=== PATIENT | female | born 1985 | race Caucasian/White ===

== ENCOUNTER 2023-02-18 14:24 | Emergency (ER) | payer OTHER, SELFPAY ==
--- NOTE | ~2023-02-18 | XR_ITS ---
EXAMINATION: XR barium swallow DATE: 02/18/2023 18:21 INDICATION: Dysphagia. TECHNIQUE: The patient drank thick barium, gas-producing crystals, and thin barium. Fluoroscopy of th e hypopharynx and esophagus was performed. Fluoroscopy exposure time was 0.8 minutes. The total numbe r of images was 498. The dose-area product was 3.570 Gy-cm^2. COMPARISON: None. FINDINGS: There is no mass or stricture of the esophagus. No diverticulum. Esophageal motility is nor mal. There is no hiatal hernia. IMPRESSION: 1. Normal esophagram. Reviewed, dictated and finalized at location A. IMPRESSION: 1. Normal esophagram.
--- NOTE | ~2023-02-18 | US_ITS ---
EXAMINATION: US right upper quadrant DATE: 02/18/2023 15:58 INDICATION: Epigastric abdominal pain. TECHNIQUE: Multiple grayscale and Doppler ultrasound images of the abdomen were obtained. COMPARISON: None FINDINGS: The visualized portions of the head and body of the pancreas are normal. The liver is julius l without focal lesion. No liver surface nodularity. There is normal flow in main portal vein. The ga llbladder is normal in size. No gallstones or gallbladder wall thickening. There is no sonographic Mu rphy sign. The common duct is normal and measures 3 mm. IMPRESSION: 1. Normal right upper quadrant ultrasound. Reviewed, dictated and finalized at location A.
[2023-02-18 14:26] VITALS: BP 147/102; PULSE 95; RESP 16; TEMP 36.6; O2SAT 99
[2023-02-18] MEDS: MORPHINE SULFATE (*CRX) 4 MG/ML INJ IV PUSH (15:06)
[2023-02-18] MEDS: ONDANSETRON INJ 4 MG/2 ML VIAL IV PUSH (15:06)
[2023-02-18 15:15] VITALS: BP 131/73; PULSE 78; RESP 16; O2SAT 98
[2023-02-18 15:17] LABS: Basophils Absolute Auto 0.1 K/mm3 (0.0-0.1); Basophils Percent Auto 0.5 % (0.2-1.2); Eosinophils Absolute Auto 0.4 K/mm3 (0-0.3); Eosinophils Percent Auto 3.3 % (0-4.4); Hematocrit 33.9 % (37.0-47.0); Hemoglobin 12.4 g/dL (12.0-15.0); Immature Granulocyte Absolute 0.02 K/mm3 (0.00-0.031); Immature Granulocyte Percent A 0.2 % (0-0.5); Lymphocytes Absolute Auto 3.02 K/mm3 (0.9-3.2); Lymphocytes Percent Auto 28.5 % (18.3-44.2); Mean Corpuscular HGB Conc 36.6 g/dl (32-36); Mean Corpuscular Hemoglobin 31.2 pg (26-34); Mean Corpuscular Volume 85.4 fl (80-100); Mean Platelet Volume 10.3 fl (7.4-10.4); Monocytes Absolute Auto 0.9 K/mm3 (0.1-0.6); Monocytes Percent Auto 8.9 % (2.6-8.5); Neutrophils Absolute Auto 6.2 K/mm3 (1.3-6.7); Neutrophils Percent Auto 58.6 % (45.5-73.1); Platelet Count Result 350 k/mm3 (150-375); Red Blood Count 3.97 M/mm3 (4.2-5.4); Red Cell Distribution Width 13.3 % (11.5-14.5); White Blood Count 10.6 K/mm3 (4.5-10.0)
[2023-02-18 15:33] LABS: Alanine Aminotransferase 18 U/L (6-35); Albumin Level 4.4 g/dL (3.5-5.1); Alkaline Phosphatase 66 U/L (38-126); Anion Gap 8 mmol/L (8-16); Aspartate Amino Transferase 18 U/L (14-36); Bilirubin,Total 0.6 mg/dL (0.2-1.3); Blood Urea Nitrogen 10 mg/dL (7-17); Calcium 9.1 mg/dL (8.4-10.2); Carbon Dioxide 27 mmol/L (22-30); Chloride 103 mmol/L (98-107); Estimated CRCL calculation 97 ml/min; Estimated Glomerular Filt Rate > 60; Glucose 94 mg/dL (65-110); Lipase 74 U/L (23-300); Potassium 2.7 mmol/L (3.4-5.0); Sodium 138 mmol/L (137-145)
[2023-02-18 16:54] VITALS: BP 131/73; PULSE 80; RESP 18; O2SAT 98
[2023-02-18 18:00] VITALS: BP 137/87; PULSE 77; RESP 16; O2SAT 97
--- NOTE | 2023-02-18 18:01 | ED.GENADULT ---
HPI - General Adult General Chief complaint: Unspecified Stated complaint: gastric reflux Time Seen by Provider: 02/18/23 14:36 History of Present Illness HPI narrative: Patient is a 37-year-old female who presents ER with nausea and vomiting. Ongoing over the last week for worsening over the last few days. Reports she has had vomit that is containing food from 2 to 3 days prior. She reports her belches smelled like sewage. She has had no diarrhea. No blood in her stool or emesis. She has been taking Protonix in the morning and famotidine in the evening. She reports she gets a fullness up into the center of her chest and moving into her back. No history of pancreatitis. She does take Ozempic and reports she usually gets 1 day of nausea and does not associate that with this. No alleviating factors. Related Data Allergies Allergy/AdvReac Type Severity Reaction Status Date / Time sumatriptan [From Imitrex] Allergy Palpitation Verified 02/18/23 15:07 s Review of Systems Review of Systems: All systems reviewed & are unremarkable except as noted in HPI and below Constitutional: Constitutional: Denies chills and Denies fever(s) ENT: Denies halitosis, Reports dysphagia and Denies nasal congestion Gastrointestinal: Gastrointestinal: Reports abdominal pain, Reports bloating, Reports early satiety, Reports nausea and Reports vomiting Musculoskeletal: Musculoskeletal: Denies back pain, Denies muscle cramps and Denies muscle weakness PMFSH Past Medical History Medical History (Updated 02/18/23 @ 18:49 by Gurjit Ruffin MD) GERD (gastroesophageal reflux disease) Hypertension Metabolic syndrome Social History Social History (Updated 02/18/23 @ 18:49 by Gurjit Ruffin MD) Smoking status: Never smoker Exam Narrative: GENERAL: Well-appearing, well-nourished, and in no acute distress. HEAD: Normocephalic, atraumatic. ENT: Mucous membranes moist. NECK: Supple. CHEST: Clear to auscultation. No respiratory distress. HEART: Regular rate and rhythm. Normal peripheral pulses. ABDOMEN: Soft, mild epigastric discomfort, nondistended, normal active bowel sounds. EXTREMITIES: Normal range of motion. No edema. SKIN: Warm, dry, no rash. NEURO: Alert and oriented x3. PSYCH: Normal mood and affect. Course Course Emergency Course: Patient resting comfortably. Informed of imaging and lab results. Suspect patient is having reflux esophagitis given her symptoms. No Zenker's diverticulum or pancreatitis. Patient has received oral potassium supplementation here. She reports she has potassium supplementation at home as well as extra Protonix. We discussed modifying her home medication regimen and she is verbalized understanding. Vital Signs Vital signs: Vital Signs Temperature 97.8 F 02/18/23 14:26 Pulse Rate 95 02/18/23 14:26 Respiratory Rate 16 02/18/23 14:26 Blood Pressure 147/102 H 02/18/23 14:26 Pulse Oximetry 99 02/18/23 14:26 Oxygen Delivery Room Air 02/18/23 14:26 Temperature 97.8 F 02/18/23 14:26 Pulse Rate 95 02/18/23 14:26 Respiratory Rate 16 02/18/23 14:26 Blood Pressure 147/102 H 02/18/23 14:26 Pulse Oximetry 99 02/18/23 14:26 Oxygen Delivery Room Air 02/18/23 14:26 Medical Decision Making Vital Signs Vital Signs: Vital Signs Temperature 97.8 F 02/18/23 14:26 Pulse Rate 95 02/18/23 14:26 Respiratory Rate 16 02/18/23 14:26 Blood Pressure 147/102 H 02/18/23 14:26 Pulse Oximetry 99 02/18/23 14:26 Oxygen Delivery Room Air 02/18/23 14:26 Temperature 97.8 F 02/18/23 14:26 Pulse Rate 95 02/18/23 14:26 Respiratory Rate 16 02/18/23 14:26 Blood Pressure 147/102 H 02/18/23 14:26 Pulse Oximetry 99 02/18/23 14:26 Oxygen Delivery Room Air 02/18/23 14:26 Lab Data 02/18/23 15:11 02/18/23 15:11 Labs: Lab Results 02/18/23 Range/Units 15:11 WBC 10.6 H (4.5-10.0) K/mm
[2023-02-18] MEDS: POTASSIUM CHLORIDE 20 MEQ TABLET 40 MEQ PO (19:02)
--- NOTE | 2023-02-19 14:28 | PC.NURSE ---
Patient called regarding rx. States she does not have her rx and the pharmacy won't accept whatever is in her discharge paperwork. Dr. Carrillo agreeable to calling in zofran at [facility] in [place].
== END 2023-02-18 19:22 | disposition home or self-care (01) ==
PROVIDERS: Emergency Provider Emergency Medicine; PCP Nurse Practitioner Family
DX: K21.9 Gastro-esophageal reflux disease without esophagitis (principal); E87.6 Hypokalemia; I10 Essential (primary) hypertension; E88.81 Metabolic syndrome and other insulin resistance; Z79.85 Long-term (current) use of injectable non-insulin antidiabetic drugs
CPT/HCPCS: 36415; 74220; 76705; 80053; 83690; 85025; 96374; 96375; 99284; A9270; J2270; J2405

== ENCOUNTER 2023-05-23 12:26 | Outpatient (CLI) | payer OTHER, SELFPAY ==
--- NOTE | ~2023-05-23 | XR_ITS ---
Lumbosacral Spine: AP and lateral views Clinical History: Pain Findings: The normal lordotic curve is maintained. The vertebral bodies and posterior elements are i ntact. The intervertebral disc spaces are preserved. There are mild facet joint degenerative changes in the lumbar spine. The sacroiliac joints are normally outlined. Impression: Mild facet joint degenerative changes. Reviewed, dictated and finalized at [facility]. Impression: Mild facet joint degenerative changes.
--- NOTE | ~2023-05-23 | XR_ITS ---
AP and lateral views of the right hip Clinical history: Pain Findings: No acute fracture or dislocation is seen. Osseous alignment is anatomic. Bilateral hip and SI joint spaces are preserved. Soft tissues are unremarkable. Impression: No significant abnormality is seen. Reviewed, dictated and finalized at location . Impression: No significant abnormality is seen.
== END 2023-05-23 12:27 | disposition home or self-care (01) ==
PROVIDERS: PCP Nurse Practitioner Family; Visit Provider Nurse Practitioner Family
DX: M54.41 Lumbago with sciatica, right side (principal); G89.29 Other chronic pain; M25.551 Pain in right hip
CPT/HCPCS: 72100; 73502

== ENCOUNTER 2023-07-18 06:38 | Outpatient (CLI) | payer OTHER, SELFPAY ==
--- NOTE | ~2023-07-18 | MR_ITS ---
MRI of the lumbar spine Clinical History: Back pain, right-sided sciatica Technique: Axial T2-weighted images, and sagittal T1-weighted, T2-weighted, and T2 fat-sat images wer e acquired. Findings: There is no fracture or subluxation of the lumbar spine. There is diffuse T1 marrow hypoint ensity, probably minimally greater than intervertebral disc signal. Marrow signal on T2-weighted sequ ences is essentially unremarkable. At L1-L2, there is no disc bulge or herniation. There is moderate facet arthropathy. No central canal stenosis or neural foraminal narrowing. At L2-L3, there is no disc bulge or herniation. There is moderate facet arthropathy. No central canal stenosis or neural foraminal narrowing. At L3-L4, there is mild disc bulge with moderate to advanced facet arthropathy. No central canal sten osis. There is probable minimal right neural foraminal narrowing. Left neural foramen preserved. At L4-L5, there is mild disc bulge with severe facet arthropathy. No central canal stenosis or neural foraminal narrowing. At L5-S1, there is no disc bulge or herniation. There is moderate facet arthropathy. No central canal stenosis or neural foraminal narrowing. Paravertebral soft tissues are unremarkable. Impression: Mild degenerative spondylosis overall, as detailed above. Diffuse T1 marrow hypointensity most likely represents red marrow conversion due to underlying anemia . Other infiltrative processes are not completely excluded, though felt to be less likely. Reviewed, dictated and finalized at [facility]. Impression: Mild degenerative spondylosis overall, as detailed above. Diffuse T1 marrow hypointensity most likely represents red marrow conversion du e to underlying anemia. Other infiltrative processes are not completely exclude d, though felt to be less likely.
[2023-07-18 07:42] LABS: Basophils Percent Auto 0.3 % (0.2-1.2); Eosinophils Absolute Auto 0.3 K/mm3 (0-0.3); Eosinophils Percent Auto 1.9 % (0-4.4); Hematocrit 38.2 % (37.0-47.0); Hemoglobin 13.3 g/dL (12.0-15.0); Immature Granulocyte Absolute 0.05 K/mm3 (0.00-0.031); Immature Granulocyte Percent A 0.4 % (0-0.5); Mean Corpuscular HGB Conc 34.8 g/dl (32-36); Mean Platelet Volume 10.7 fl (7.4-10.4); Monocytes Absolute Auto 1.1 K/mm3 (0.1-0.6); Neutrophils Absolute Auto 9.5 K/mm3 (1.3-6.7); Neutrophils Percent Auto 71.4 % (45.5-73.1); Platelet Count Result 367 k/mm3 (150-375); Red Blood Count 4.29 M/mm3 (4.2-5.4); Red Cell Distribution Width 13.2 % (11.5-14.5); White Blood Count 13.3 K/mm3 (4.5-10.0)
[2023-07-18 07:50] LABS: Alanine Aminotransferase 18 U/L (6-35); Albumin Level 4.5 g/dL (3.5-5.1); Alkaline Phosphatase 67 U/L (38-126); Anion Gap 10 mmol/L (8-16); Aspartate Amino Transferase 21 U/L (14-36); Bilirubin,Total 0.8 mg/dL (0.2-1.3); Blood Urea Nitrogen 11 mg/dL (7-17); Calcium 9.2 mg/dL (8.4-10.2); Carbon Dioxide 26 mmol/L (22-30); Chloride 101 mmol/L (98-107); Cholesterol 227 mg/dL (0-200); Estimated Glomerular Filt Rate > 60; Glucose 109 mg/dL (65-110); HDL Direct 33 mg/dL; Sodium 137 mmol/L (137-145); Triglycerides 298 mg/dL (<150)
[2023-07-18 07:51] LABS: Hemoglobin A1C 4.5 % (<5.7)
[2023-07-18 08:01] LABS: LDL Cholesterol Direct 128 mg/dL
== END 2023-07-18 06:39 | disposition home or self-care (01) ==
PROVIDERS: PCP Nurse Practitioner Family; Visit Provider Nurse Practitioner Family
DX: M54.41 Lumbago with sciatica, right side (principal); G89.29 Other chronic pain; Z00.00 Encounter for general adult medical examination without abnormal findings; Z13.1 Encounter for screening for diabetes mellitus; M47.896 Other spondylosis, lumbar region
CPT/HCPCS: 36415; 72148; 80053; 80061; 83036; 85025

== ENCOUNTER 2025-02-27 06:54 | Outpatient (CLI) | payer OTHER, SELFPAY ==
--- NOTE | ~2025-02-27 | XR_ITS ---
Lumbosacral Spine: AP, oblique, and lateral views Clinical History: Pain Findings: The normal lordotic curve is maintained. The vertebral bodies and posterior elements are i ntact. The intervertebral disc spaces are preserved. Advanced facet arthropathy present throughout t he lumbar spine, especially from L3 through S1. The sacroiliac joints are normally outlined. Impression: Advanced facet arthropathy, as above. Reviewed, dictated and finalized at location M. Impression: Advanced facet arthropathy, as above.
== END 2025-02-27 06:55 | disposition home or self-care (01) ==
LOC: MICIMG 06:59
PROVIDERS: PCP Nurse Practitioner Psychiatric/Mental Health; Visit Provider Nurse Practitioner Psychiatric/Mental Health
DX: M54.42 Lumbago with sciatica, left side (principal); G89.29 Other chronic pain
CPT/HCPCS: 72110

== ENCOUNTER 2025-03-26 10:01 | Outpatient (CLI) | payer OTHER, SELFPAY ==
--- NOTE | ~2025-03-26 | MR_ITS ---
MRI of the lumbar spine Clinical History: Back pain Technique: Axial T2-weighted images, and sagittal T1-weighted, T2-weighted, and T2 fat-sat images wer e acquired. Findings: There is no fracture or subluxation of the lumbar spine. Vertebral bodies maintain normal h eight and alignment. No bone marrow signal abnormality seen. At L1-L2 and L2-L3, there is intervertebral discs maintain normal signal and position. No disc bulge or herniation. There is mild to moderate facet arthropathy at these levels. No spinal canal stenosis or neural foraminal narrowing at these levels. At L3-L4, there is minimal degenerative disc narrowing with minimal disc bulge. There is moderate fac et arthropathy. No central canal stenosis or neural foraminal narrowing. At L4-L5, there is minimal disc bulge with moderate to advanced facet arthropathy. No central canal s tenosis. There is minimal right neural foraminal narrowing. Left neural foramen preserved. At L5-S1, there is no disc bulge or herniation. No spinal canal stenosis or neural foraminal narrowin g. Paravertebral soft tissues are unremarkable. Impression: Minimal degenerative changes, as above. Reviewed, dictated and finalized at location . Impression: Minimal degenerative changes, as above.
== END 2025-03-26 10:02 | disposition home or self-care (01) ==
PROVIDERS: PCP Nurse Practitioner Psychiatric/Mental Health; Visit Provider Nurse Practitioner Psychiatric/Mental Health
DX: M47.819 Spondylosis without myelopathy or radiculopathy, site unspecified (principal)
CPT/HCPCS: 72148

== ENCOUNTER 2025-10-14 07:12 | Outpatient (CLI) | payer OTHER, SELFPAY ==
--- NOTE | ~2025-10-14 | XR_ITS ---
XR sacroiliac joints min 3V 10/14/2025 07:46 Indication: Joint pain Procedure: 3 views of the sacroiliac joints. Comparison: 10/14/2025 Findings: No significant abnormality of the sacroiliac joints which are symmetric. 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 No fracture or traumatic malalignment. 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 Reviewed, dictated and finalized at location O. 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
--- NOTE | ~2025-10-14 | XR_ITS ---
EXAMINATION: HAND-GERARDO ARTHRITIS 3+VIEWS DATE: 10/14/2025 07:46 INDICATION: Unspecified joint pain at the bilateral hands TECHNIQUE: Posteroanterior, lateral, and oblique views of the left and of the right hands as well as a ballcatchers view of both hands were obtained. COMPARISON: None. FINDINGS: Bone alignment is normal at the bilateral hands and wrists. No fracture. Joint spaces appear relatively preserved throughout. No erosions to suggest inflammatory arthritis. Soft tissues are unremarkable. IMPRESSION: 1. Normal bilateral hand radiographs. Reviewed, dictated and finalized at location A. UATOR
--- NOTE | ~2025-10-14 | XR_ITS ---
XR hip BI 2V w AP pelvis 10/14/2025 07:46 Indication: Arthritis Procedure: AP pelvis and 2 views each hip Comparison: No prior studies for comparison. Findings: Pelvic rings intact. Sacral foramen are symmetric. Hips are symmetric. No significant joint space narrowing. No degenerative change. Pelvic rings intact. No soft tissue abnormality. No foreign body. Impression: 1: No significant bone or joint abnormality. Reviewed, dictated and finalized at location O. [employer] ASSEMBLER Impression: 1: No significant bone or joint abnormality.
== END 2025-10-14 07:13 | disposition home or self-care (01) ==
PROVIDERS: PCP Nurse Practitioner Psychiatric/Mental Health
DX: M25.50 Pain in unspecified joint (principal); R68.2 Dry mouth, unspecified; E55.9 Vitamin D deficiency, unspecified; R53.1 Weakness
CPT/HCPCS: 72202; 73130; 73521